=== PATIENT | male | born 1945 | race Native Hawaiian/Other Pacific Islander ===

== ENCOUNTER 2016-05-13 09:37 | Outpatient (CLI) | payer OTHER | END 2016-05-13 19:44 | disposition home or self-care (01) | LOC: LABW 09:37 | DX: I72.3 Aneurysm of iliac artery (principal) | CPT/HCPCS: 36415; 82565 ==

== ENCOUNTER 2016-05-20 14:08 | Outpatient (CLI) | payer OTHER | END 2016-05-20 19:24 | disposition home or self-care (01) | LOC: RAD 14:08 | DX: M54.5 Low back pain (principal) ==

== ENCOUNTER 2016-06-20 13:12 | Outpatient (CLI) | payer OTHER | END 2016-06-20 20:48 | disposition home or self-care (01) | LOC: MRI 13:12 | DX: M54.17 Radiculopathy, lumbosacral region (principal) ==

== ENCOUNTER 2016-10-04 11:13 | Outpatient (CLI) | payer OTHER ==
[2016-10-04 12:11] LABS: PLATELET COUNT 216 K/uL (142-355)
== END 2016-10-04 12:15 | disposition home or self-care (01) ==
LOC: LABW 11:13
PROVIDERS: Internal Medicine Gastroenterology
DX: K64.0 First degree hemorrhoids (principal); K59.1 Functional diarrhea
CPT/HCPCS: 36415; 85027

== ENCOUNTER 2016-10-05 13:53 | Outpatient (CLI) | payer OTHER | END 2016-10-05 14:55 | disposition home or self-care (01) | LOC: LABW 13:53 | DX: K64.0 First degree hemorrhoids (principal); K59.1 Functional diarrhea | CPT/HCPCS: 82272 ==

== ENCOUNTER 2016-11-14 14:31 | Outpatient (CLI) | payer OTHER | END 2016-11-14 15:35 | disposition home or self-care (01) | LOC: RAD 14:31 | DX: R05 Cough (principal) ==

== ENCOUNTER 2017-01-30 11:58 | Emergency (ER) | payer OTHER ==
[~2017-01-30] VITALS: Ht 172.7 cm; Wt 104.3 kg
[2017-01-30] MEDS ORDERED: TAMS0.4C PO (13:05)
[2017-01-30] MEDS ORDERED: LORA1TAB17 PO (13:05)
[2017-01-30] MEDS ORDERED: LIPITOR20 MG PO (13:07)
[2017-01-30] MEDS ORDERED: CLOP75TA2 PO (13:08)
[2017-01-30] MEDS ORDERED: ACID REDUCER150 MG OR (13:08)
[2017-01-30] MEDS ORDERED: LOTREL1 CA4 PO (13:10)
[2017-01-30] MEDS ORDERED: CLARITIN10 M1 PO (13:10)
[2017-01-30 13:55] VITALS: BP 125/68; TEMP 97.8
== END 2017-01-30 13:55 | disposition home or self-care (01) ==
LOC: ED 11:58
DX: R51 Headache (principal); M54.2 Cervicalgia; V53.5XXA Driver of pick-up truck or van injured in collision with car, pick-up truck or van in traffic accident, initial encounter; Y92.89 Other specified places as the place of occurrence of the external cause
CPT/HCPCS: 36415; 96374; 96375; 99284; J1170; J2405

== ENCOUNTER 2017-07-02 11:32 | Outpatient (CLI) | payer OTHER ==
[~2017-07-02 11:32] MED LIST: ACID REDUCER150 MG OR; CLARITIN10 M1 PO; CLOP75TA2 PO; LIPITOR20 MG PO; LORA1TAB17 PO; LOTREL1 CA4 PO; TAMS0.4C PO
== END 2017-07-02 21:41 | disposition home or self-care (01) ==
LOC: LABW 11:32
PROVIDERS: Internal Medicine Cardiovascular Disease
DX: E78.2 Mixed hyperlipidemia (principal)
CPT/HCPCS: 36415; 80061; 80076

== ENCOUNTER 2018-03-12 10:03 | Outpatient (CLI) | payer OTHER | END 2018-03-12 19:10 | disposition home or self-care (01) | LOC: LABW 10:03 | PROVIDERS: Internal Medicine Cardiovascular Disease | DX: E78.2 Mixed hyperlipidemia (principal) | CPT/HCPCS: 80061; 80076 ==

== ENCOUNTER 2018-04-01 14:46 | Outpatient (CLI) | payer OTHER | END 2018-04-01 23:06 | disposition home or self-care (01) | LOC: US 14:46 | DX: R09.89 Other specified symptoms and signs involving the circulatory and respiratory systems (principal) ==

== ENCOUNTER 2020-08-05 23:02 | Observation (INO) | payer OTHER ==
[~2020-08-05] VITALS: Ht 175.3 cm; Wt 104.3 kg
[2020-08-05 23:05] VITALS: BP 141/69; TEMP 98.5
[2020-08-05 23:26] LABS: PLATELET COUNT 192 K/uL (142-355)
[2020-08-05 23:31] VITALS: BP 146/74
[2020-08-05 23:45] VITALS: BP 159/85
[2020-08-05 23:46] LABS: POTASSIUM 3.7 mmol/L (3.6-5.2); SODIUM 141 mmol/L (136-145)
[2020-08-05 23:53] LABS: PARTIAL THROMBOPLASTIN TIME 23.9 SECONDS (24.5-33.6)
[2020-08-06] VITALS (7 sets, daily range): BP systolic 139–186; BP diastolic 70–88; TEMP 97.5; Ht 175.3 cm; Wt 104.3 kg
--- NOTE | 2020-08-06 03:00 | NUR ---
PT IS A DIRECT ADMIT TO ROOM 1109. PT IS 74 YEAR OLD MALE IN WITH DIAGNOSIS OF CHEST PAIN R/O AMI, RHABDOMYOLYSIS, AND ELEVATED D DIMER. PT IS OBSERVATION STATUS. PLACED ON TELEMETRY. PT WITH SINUS RHYTHM. ASSESSMENT WAS DONE. IV WAS STARTED TO PT'S RIGHT HAND. 20 GAUGE STARTED PER 1 STICK. BLOOD SAMPLE COLLECTED FOR LACTIC ACID. HOME MEDICATIONS WERE REVIEWED. COVID SWAB TO BE DONE. BEDSIDE TABLE IN EASY REACH. CALL LIGHT IN EASY REACH.
--- NOTE | 2020-08-06 03:58 | NUR ---
PT STATED THAT HE IS ALLERGIC TO ALL PAIN MEDICATIONS THAT HAVE AND OF "CET" FAMILY. PERCOCET, DARVOCET, LORACET, AND ANY OTHER IN THIS CATEGORY. O2 SAT IS 96 PERCENT.
--- NOTE | 2020-08-06 04:00 | NUR ---
NS BOLUS INFUSING ORDERED.
[2020-08-06] MEDS ORDERED: CADUET5 MG/20 MG (04:31)
[2020-08-06] MEDS ORDERED: TAMSULOSIN0.4 MG PO (04:35)
[2020-08-06] MEDS ORDERED: LIPITOR40 MG PO (04:36)
[2020-08-06] MEDS ORDERED: CLOPIDOGREL75 MG PO (04:37)
[2020-08-06] MEDS ORDERED: MYRBETRIQ25 MG (04:38)
[2020-08-06] MEDS ORDERED: LORA0.5T17 PO (04:41)
[2020-08-06] MEDS ORDERED: ASA LOW DOSE81 MG PO (04:45)
[2020-08-06] MEDS ORDERED: NIASPAN1000 MG PO (04:46)
--- NOTE | 2020-08-06 04:48 | NUR ---
PT IS SENSITIVE TO BETA BLOCKERS. HOLDING NITRO OINTMENT UNTIL DR. ZEPEDA REVIEWS. PT DENIES ANY CHEST DISCOMFORT. PT IS RESTING WITH EYES CLOSED. SR ON TELEMETRY.
--- NOTE | 2020-08-06 05:23 | NUR ---
BLOOD DRAWN FOR CARDIAC ENZYMES NUMBER 2. EKG NUMBER 2 DONE.
--- NOTE | 2020-08-06 07:45 | NUR ---
PHARM D CALLED [facility] TO DISCUSS LOVENOX DOSAGE. DOSAGE CALCULATED TO BE 100 MG SC Q12HR. ORDER CLARIFICATION WRITTEN.
--- NOTE | 2020-08-06 08:00 | NUR ---
PATIENT CALLED [facility] VIA PHONE. HE STATED THAT HIS IV WAS LEAKING AND HIS CALL LIGHT WAS NOT WORKING. INTERSTATE BUS DRIVER ENTERED THE ROOM TO FIND PATIENT SITTING IN BED WITH HAND PROPPED ON BEDSIDE TABLE. THERE WAS A PUDDLE OF CLEAR FLUID AT BEDSIDE. PUDDLE WAS CLEANED UP BY INTERSTATE BUS DRIVER. INTERSTATE BUS DRIVER ADJUSTED IV AND REINFORCED THE IV. IF FLUSHES AND GIVES GOOD BLOOD RETURN. NS INFUSING AT 125 ML/HR AT THIS TIME. PATIENT IS FREE OF NEEDS AT THIS TIME.
--- NOTE | 2020-08-06 12:42 | NUR ---
[facility] CALLED TO FLOOR BY KESHA. CPK- [phone].
--- NOTE | 2020-08-06 14:00 | NUR ---
VERBAL ORDER FOR 1000ML BOLUS RECEIVED FROM DR. ZEPEDA.
--- NOTE | 2020-08-06 16:00 | NUR ---
20G PERIPHERAL IV TO RIGHT HAND D/C WITH TIP INTACT. DISCHARGE INSTRUCTIONS PROVIDED TO PATIENT. PATIENT VERBALIZED UNDERSTANDING OF INSTRUCTIONS. TELEMETRY D/C. PATIENT SURVEY COMPLETED.
--- NOTE | 2020-08-06 16:10 | NUR ---
PATIENT DISCHARGED HOME VIA PERSONAL VEHICLE WITH DRIVING. PATIENT AMBULATED TO EXIT.
== END 2020-08-06 16:08 | disposition home or self-care (01) ==
LOC: ED 23:02 → MED/SURG 08-06 02:45
PROVIDERS: Emergency Medicine; ADMIT Family Medicine; ATTEND Family Medicine
DX: M62.82 Rhabdomyolysis (principal); R07.89 Other chest pain; E66.8 Other obesity; I10 Essential (primary) hypertension; M19.90 Unspecified osteoarthritis, unspecified site; M25.511 Pain in right shoulder
CPT/HCPCS: 36415; 80053; 82550; 82553; 83605; 83880; 84484; 85027; 85379; 85610; 85730; 87635; 93005; 96360; 96365; 96366; 99220; 99284; G0378; J1650; Q9963; U0003

== ENCOUNTER 2020-08-07 18:59 | Outpatient (CLI) | payer OTHER ==
[~2020-08-07 18:59] MED LIST changes: +ASA LOW DOSE81 MG PO; +CADUET5 MG/20 MG; +CLOPIDOGREL75 MG PO; +LIPITOR40 MG PO; +LORA0.5T17 PO; +MYRBETRIQ25 MG; +NIASPAN1000 MG PO; +TAMSULOSIN0.4 MG PO
== END 2020-08-07 21:53 | disposition home or self-care (01) ==
LOC: LAB 18:59
PROVIDERS: ATTEND Family Medicine
DX: R89.0 Abnormal level of enzymes in specimens from other organs, systems and tissues (principal); R79.1 Abnormal coagulation profile
CPT/HCPCS: 82550; 83880; 84484; 85379

== ENCOUNTER 2020-08-21 15:56 | Outpatient (CLI) | payer OTHER | END 2020-08-21 18:00 | disposition home or self-care (01) | LOC: LABW 15:56 | PROVIDERS: ATTEND Internal Medicine Cardiovascular Disease | DX: E78.2 Mixed hyperlipidemia (principal) | CPT/HCPCS: 36415; 80061; 80076 ==

== ENCOUNTER 2020-10-13 12:21 | Outpatient (CLI) | payer OTHER | END 2020-10-13 23:13 | disposition home or self-care (01) | LOC: RAD 12:21 | PROVIDERS: ATTEND Nurse Practitioner Family | DX: J20.8 Acute bronchitis due to other specified organisms (principal) ==

== ENCOUNTER 2021-03-19 14:56 | Outpatient (CLI) | payer OTHER | END 2021-03-19 20:29 | disposition home or self-care (01) | LOC: US 14:56 | PROVIDERS: ATTEND Nurse Practitioner Family | DX: I72.3 Aneurysm of iliac artery (principal); M54.17 Radiculopathy, lumbosacral region ==

== ENCOUNTER 2021-03-27 17:57 | Observation (INO) | payer OTHER ==
[~2021-03-27] VITALS: Ht 175.3 cm; Wt 104.0 kg
[2021-03-27 18:00] VITALS: BP 121/87; TEMP 98
[2021-03-27 18:28] LABS: PLATELET COUNT 250 K/uL (142-355)
[2021-03-27 18:30] VITALS: BP 121/87
[2021-03-27 18:46] LABS: POTASSIUM 3.9 mmol/L (3.6-5.2)
[2021-03-27 18:51] LABS: PARTIAL THROMBOPLASTIN TIME 25.1 SECONDS (24.5-33.6)
[2021-03-27 19:00] VITALS: BP 152/83
[2021-03-27 20:00] VITALS: BP 148/74
[2021-03-27 21:05] VITALS: BP 147/89
[2021-03-27 23:17] VITALS: BP 140/93; TEMP 97.5; Ht 175.3 cm; Wt 104.0 kg
[2021-03-28 04:27] VITALS: BP 127/84; TEMP 97.7
[2021-03-28 05:10] LABS: PLATELET COUNT 216 K/uL (142-355)
[2021-03-28 05:29] LABS: POTASSIUM 3.8 mmol/L (3.6-5.2)
[2021-03-28 08:42] VITALS: BP 134/77; TEMP 97.8
[2021-03-28 12:47] VITALS: BP 116/76; TEMP 97.7
[2021-03-28] MEDS ORDERED: TRAMADOL HYDROC50 MG PO (13:30)
[2021-03-28] MEDS ORDERED: NEURONTIN 100M100 MG PO (13:31)
[2021-03-28] MEDS ORDERED: NYSTATIN100000 UNI PO (13:32)
== END 2021-03-28 18:05 | disposition home or self-care (01) ==
LOC: ED 17:57 → MED/SURG 18:00
PROVIDERS: ADMIT Emergency Medicine; ATTEND Family Medicine
DX: I48.91 Unspecified atrial fibrillation (principal); I48.92 Unspecified atrial flutter; I10 Essential (primary) hypertension; R07.89 Other chest pain; R00.0 Tachycardia, unspecified; E86.0 Dehydration; E78.5 Hyperlipidemia, unspecified
CPT/HCPCS: 36415; 80053; 80162; 82550; 82728; 83735; 83880; 84100; 84443; 84484; 85027; 85379; 85610; 85730; 86140; 87040; 87635; 93005; 94760; 96365; 96366; 96372; 96375; 99220; 99284; G0378; J0456; J0610; J0696; J1160; J1650; Q9963; U0003

== ENCOUNTER 2021-05-14 09:18 | Outpatient (CLI) | payer OTHER ==
[~2021-05-14 09:18] MED LIST changes: +NEURONTIN 100M100 MG PO; +NYSTATIN100000 UNI PO; +TRAMADOL HYDROC50 MG PO
== END 2021-05-14 19:05 | disposition home or self-care (01) ==
LOC: LABW 09:18
PROVIDERS: ATTEND Nurse Practitioner Family
DX: E78.2 Mixed hyperlipidemia (principal)
CPT/HCPCS: 36415; 80061; 80076

== ENCOUNTER 2021-08-07 11:01 | Emergency (ER) | payer OTHER ==
[~2021-08-07] VITALS: Ht 175.3 cm; Wt 104.3 kg
[2021-08-07 11:05] VITALS: TEMP 97.2
[2021-08-07 11:43] LABS: PLATELET COUNT 197 K/uL (142-355)
[2021-08-07 11:50] LABS: POTASSIUM 4.1 mmol/L (3.6-5.2)
[2021-08-07 11:58] LABS: PARTIAL THROMBOPLASTIN TIME 24.9 SECONDS (24.5-33.6)
[2021-08-07 12:35] VITALS: BP 152/76
== END 2021-08-07 12:40 | disposition home or self-care (01) ==
LOC: ED 11:01
PROVIDERS: Emergency Medicine
DX: K21.9 Gastro-esophageal reflux disease without esophagitis (principal); K30 Functional dyspepsia
CPT/HCPCS: 36415; 80053; 83880; 84484; 85027; 85379; 85610; 85730; 93005; 99284

== ENCOUNTER 2021-08-17 08:02 | Outpatient (CLI) | payer OTHER | END 2021-08-17 21:08 | disposition home or self-care (01) | LOC: LABW 08:02 | PROVIDERS: ATTEND Nurse Practitioner Family | DX: E78.2 Mixed hyperlipidemia (principal); Z79.899 Other long term (current) drug therapy | CPT/HCPCS: 36415; 80061; 80076 ==

== ENCOUNTER 2021-09-20 08:19 | Outpatient (CLI) | payer OTHER ==
[2021-09-20 08:39] LABS: PLATELET COUNT 210 K/uL (142-355)
[2021-09-20 08:48] LABS: POTASSIUM 4.1 mmol/L (3.6-5.2)
== END 2021-09-20 19:03 | disposition home or self-care (01) ==
LOC: LABW 08:19
PROVIDERS: ATTEND Internal Medicine Gastroenterology
DX: K64.0 First degree hemorrhoids (principal); K64.8 Other hemorrhoids; K92.1 Melena
CPT/HCPCS: 36415; 80053; 82272; 85027

== ENCOUNTER 2022-05-08 10:52 | Day surgery (SDC) | payer OTHER | END 2022-05-08 13:10 | disposition home or self-care (01) | LOC: OR 10:52 | PROVIDERS: ATTEND Internal Medicine Gastroenterology | PROC: 0DB68ZX Excision of Stomach, Via Natural or Artificial Opening Endoscopic, Diagnostic (ICD-10-PCS; principal; 2022-05-08) | PROC: 0D738ZZ Dilation of Lower Esophagus, Via Natural or Artificial Opening Endoscopic (ICD-10-PCS; 2022-05-08) | DX: K29.50 Unspecified chronic gastritis without bleeding (principal); K21.00 Gastro-esophageal reflux disease with esophagitis, without bleeding; K22.2 Esophageal obstruction; R13.19 Other dysphagia; K22.4 Dyskinesia of esophagus | CPT/HCPCS: J2001; J2704; J7120 ==

== ENCOUNTER 2022-12-11 15:59 | Outpatient (CLI) | payer OTHER ==
[2022-12-11 16:28] LABS: PLATELET COUNT 213 K/uL (142-355)
[2022-12-11 16:36] LABS: POTASSIUM 3.7 mmol/L (3.6-5.2)
== END 2022-12-11 19:31 | disposition home or self-care (01) ==
LOC: LABW 15:59
PROVIDERS: ATTEND Nurse Practitioner Family
DX: R25.2 Cramp and spasm (principal)
CPT/HCPCS: 36415; 80053; 82550; 83735; 85027